=== PATIENT | male | born 1990 | race Caucasian/White ===

== ENCOUNTER 2018-02-11 20:31 | Emergency (ER) | payer OTHER ==
--- NOTE | 2018-02-11 21:19 | RADIOLOGY REPORT (SQ) ---
EXAM DESCRIPTION: CT HEAD WITHOUT COMPLETED DATE/TIME: 02/11/2018 9:09 pm REASON FOR STUDY: ORTIZ hx of mass COMPARISON: None. TECHNIQUE: Axial images acquired through the brain without intravenous contrast. Images reviewed wi th bone, brain and subdural windows. Additional sagittal and coronal reconstructions were generated. Images stored on PACS. All CT scanners at this facility use dose modulation, iterative reconstruction, and/or weight based d osing when appropriate to reduce radiation dose to as low as reasonably achievable (ALARA). [facility]: Dose Right [facility]: CareDose [facility]: Dose Right [facility]: Teradose 4D [facility]: [employer] RADIATION DOSE: CT Rad equipment meets quality standard of care and radiation dose reduction techniq ues were employed. CTDIvol: 53.2 mGy. DLP: 991 mGy-cm. mGy. LIMITATIONS: None. FINDINGS: VENTRICLES: Normal size and contour. CEREBRUM: No masses. No hemorrhage. No midline shift. No evidence for acute infarction. Normal gra y/white matter differentiation. No areas of low density in the white matter. CEREBELLUM: No masses. No hemorrhage. No alteration of density. No evidence for acute infarction. EXTRAAXIAL SPACES: No fluid collections. No masses. ORBITS AND GLOBE: No intra- or extraconal masses. Normal contour of globe without masses. CALVARIUM: No fracture. PARANASAL SINUSES: No fluid or mucosal thickening. SOFT TISSUES: No mass or hematoma. OTHER: No other significant finding. IMPRESSION: NORMAL BRAIN CT WITHOUT CONTRAST. EVIDENCE OF ACUTE STROKE: NO. COMMENT: Quality ID # [id number]: Final reports with documentation of one or more dose reduction techniques (e.g., Automated exposure control, adjustment of the mA and/or kV according to patient size, use of iterative reconstruction technique) TECHNICAL DOCUMENTATION: JOB ID: [id number] [employer]- All Rights Reserved Reading location - IP/workstation name: [email or web address]
[2018-02-11] MEDS ORDERED: NORMAL SALINE 1000 ML 1,000 ML IV ONE ×2 (22:14→23:19)
--- NOTE | 2018-02-11 22:18 | ER Document Report ---
ED Medical Screen (RME) - General Chief Complaint: Headache Stated Complaint: BLURRY VISION Time Seen by Provider: 02/11/18 22:11 Mode of Arrival: Wheelchair Information source: Patient Notes: 27 yo tob smoker, no etoh for 2 years, no drugs, male c/o fright sided headache that causes him inability to sit still 3 hours ago, vision doubling, trouble seeing, could only see straight with 1 eye closed. No recent illness. Hx migraines-feels the same. Increased frequency of headches over the past 6 weeks , every other day. Tx with Ibuprofen, tylenol. No fever or chills. TRAVEL OUTSIDE OF THE [place] IN LAST 30 DAYS: No Physical Exam - Vital signs Vitals: Temp Pulse Resp BP Pulse Ox 97.7 F 92 12 121/79 97 02/11/18 21:01 02/11/18 21:01 02/11/18 21:01 02/11/18 21:01 02/11/18 21:01 Course - Vital Signs Vital signs: Temp Pulse Resp BP Pulse Ox 97.7 F 92 12 121/79 97 02/11/18 21:01 02/11/18 21:01 02/11/18 21:01 02/11/18 21:01 02/11/18 21:01
[2018-02-11] MEDS ORDERED: PROCHLORPERAZINE EDISYLATE INJ 10 MG/2 ML VIAL IV ONE (22:19)
[2018-02-11] MEDS ORDERED: DIPHENHYDRAMINE HCL 50 MG/ML VIAL IV ONE ×2 (22:19→23:08)
[2018-02-11] MEDS ORDERED: KETOROLAC TROMETHAMINE INJ/PF 30 MG/1 ML SDV IV ONE (22:19)
[2018-02-11] MEDS ORDERED: LORAZEPAM INJ 2 MG/1 ML VIAL IV ONE ×3 (22:52→23:56)
[2018-02-11] MEDS ORDERED: LORAZEPAM INJ 2 MG/1 ML VIAL ONE (22:56)
[2018-02-11] MEDS ORDERED: DIPHENHYDRAMINE HCL 50 MG/ML VIAL ONE (23:02)
[2018-02-11] MEDS ORDERED: HALOPERIDOL LACTATE INJ 5 MG/1 ML VIAL IV ONE (23:15)
[2018-02-11 23:30] LABS: ABSOLUTE EOSINOPHILS # (AUTO) 0.1 10^3/uL (0.0-0.6); ABSOLUTE LYMPHOCYTES (AUTO) 3.8 10^3/uL (0.5-4.7); ABSOLUTE MONOCYTES (AUTO) 1.4 10^3/uL (0.1-1.4); ABSOLUTE NEUT (AUTO) 9.9 10^3/uL (1.7-8.2); BASOPHILS % (AUTO) 0.2 % (0-2); HEMATOCRIT 42.6 % (37.9-51.0); HEMOGLOBIN 14.9 g/dL (13.5-17.0); LYMPHOCYTES % (AUTO) 24.8 % (13-45); MEAN CORPUSCULAR HEMOGLOBIN 31.4 pg (27.0-33.4); MEAN CORPUSCULAR HGB CONC 34.9 g/dL (32.0-36.0); MEAN CORPUSCULAR VOLUME 90 fl (80-97); MONOCYTES % (AUTO) 9.3 % (3-13); PLATELET COUNT 329 10^3/uL (150-450); RED BLOOD COUNT 4.74 10^6/uL (4.35-5.55); RED CELL DISTRIBUTION WIDTH 13.1 % (11.5-14.0); SEGMENTED NEUTROPHILS % (AUTO) 64.7 % (42-78); TOTAL CELLS COUNTED % (AUTO) 100 %; WHITE BLOOD COUNT 15.2 10^3/uL (4.0-10.5)
[2018-02-11 23:43] LABS: ALANINE AMINOTRANSFERASE 22 U/L (21-72); ALKALINE PHOSPHATASE 77 U/L (38-126); ASPARTATE AMINO TRANSFERASE 23 U/L (17-59); BILIRUBIN,DIRECT 0.2 mg/dL (0.0-0.4); BILIRUBIN,TOTAL 0.3 mg/dL (0.2-1.3); BLOOD UREA NITROGEN 10 mg/dL (7-20); CALCIUM 9.4 mg/dL (8.4-10.2); CARBON DIOXIDE 17 mmol/L (22-30); CHLORIDE 108 mmol/L (98-107); GLUCOSE 113 mg/dL (75-110); POTASSIUM 3.9 mmol/L (3.6-5.0); TOTAL PROTEIN 7.1 g/dL (6.3-8.2)
[2018-02-11 23:44] LABS: ACETAMINOPHEN < 10 ug/mL (10-30); ALCOHOL < 10 mg/dL (NONE DETECTED); SALICYLATE < 1.0 mg/dL (2.0-20.0)
[2018-02-11 23:48] LABS: ANION GAP 24 (5-19); SODIUM 148.6 mmol/L (137-145)
--- NOTE | 2018-02-11 23:59 | ER Document Report ---
ED General - General Mode of Arrival: Wheelchair TRAVEL OUTSIDE OF THE [place] IN LAST 30 DAYS: No <COREY GARCIA - Last Filed: 02/12/18 07:27> <MYRNA HARDING - Last Filed: 02/12/18 10:49> - General Chief Complaint: Headache Stated Complaint: BLURRY VISION Time Seen by Provider: 02/11/18 22:11 Notes: Patient is a 27-year-old male that comes emergency department for chief complaint of a headache on my evaluation patient cannot sit still, is writhing over the bed, parents at bedside state that patient was complaining of vomiting and headache prior to arrival but after arrival became fidgety and irritable and then after being given medications he began convulsing and jerking. They state he is given gabapentin and another common medication that they do not know [facility], patient is also apparently previously taken the supplement kratom, denies taking any tonight. (COREY GARCIA) - Related Data Allergies/Adverse Reactions: tramadol Adverse Reaction (Verified 02/11/18 22:23) Past Medical History - General Information source: Patient - Social History Smoking Status: Current Every Day Smoker Frequency of alcohol use: None Drug Abuse: None Lives with: Family Family History: Reviewed & Not Pertinent Patient has suicidal ideation: No Patient has homicidal ideation: No - Medical History Medical History: Negative Renal/ Medical History: Denies: Hx Peritoneal Dialysis Surgical Hx: Negative - Immunizations Immunizations up to date: Yes Hx Diphtheria, Pertussis, Tetanus Vaccination: Yes <COREY GARCIA - Last Filed: 02/12/18 07:27> Review of Systems - Review of Systems Constitutional: No symptoms reported EENT: No symptoms reported Cardiovascular: No symptoms reported Respiratory: No symptoms reported Gastrointestinal: No symptoms reported Genitourinary: No symptoms reported Male Genitourinary: No symptoms reported Musculoskeletal: See HPI Skin: No symptoms reported Hematologic/Lymphatic: No symptoms reported Neurological/Psychological: See HPI <COREY GARCIA - Last Filed: 02/12/18 07:27> Physical Exam - Vital signs Interpretation: Normal - General General appearance: Anxious In distress: Moderate - Patient appears uncomfortable, he is jerking his arms and legs all over the bed - HEENT Head: Normocephalic, Atraumatic Eyes: Normal Conjunctiva: Normal Extraocular movements intact: Yes Eyelashes: Normal Pupils: PERRL Nasal: Normal Mouth/Lips: Normal Mucous membranes: Normal Pharynx: Normal Neck: Normal - Respiratory Respiratory status: No respiratory distress Chest status: Nontender Breath sounds: Normal. No: Decreased air movement, Wheezing Chest palpation: Normal - Cardiovascular Rhythm: Regular. No: Tachycardia Heart sounds: Normal auscultation, S1 appreciated, S2 appreciated Murmur: No - Abdominal Inspection: Normal Distension: No distension Bowel sounds: Normal Tenderness: Nontender. No: Tender, Guarding - Back Back: Normal, Nontender. No: Tender - Extremities General upper extremity: Normal inspection, Nontender, Normal ROM, Normal strength General lower extremity: Normal inspection, Nontender, Normal ROM, Normal strength - Neurological Neuro grossly intact: Yes Cognition: Normal Orientation: AAOx4 David Coma Scale Eye Opening: Spontaneous David Coma Scale Verbal: Oriented [place] Coma Scale Motor: Obeys Commands David Coma Scale Total: 15 Cranial nerves: Normal Sensory: Normal - Psychological Associated symptoms: Agitated - Skin Skin Temperature: Warm Skin Moisture: Dry Skin Color: Normal <COREY GARCIA - Last Filed: 02/12/18 07:27> - Vital signs Vitals: Temp Pulse Resp BP Pulse Ox 97.7 F 92 12 121/79 97 02/11/18 21:01 02/11/18 21:01 02/11/18 21:01 02/11/18 21:01 02/11/18 21:01 Course - Laboratory Result Diagrams: 02/11/18 23:10 02/11/18 23:10 <COREY GARCIA - Last Filed: 02/12/18 07:27> - Laboratory Result Diagrams: 02/11/18 23:10 02/11/18 23:10 <MYRNA HARDING - Last Filed: 02/12/18 10:49> - Re-evaluation Re-evalutation: Patient is tachycardic, spasming/convulsing on the bed, he complains that he feels like he can't stop moving. He is oriented, cooperative. Patient has already been given 5 mg of Haldol, 50 mg of Benadryl, Compazine, Toradol, and Ativan. Per parents patient significantly worsened after medications, could be dystonic reaction initially. Could be dystonic reaction to Compazine, he did get Haldol afterwards. CAT scan of the head shows no concerning abnormalities, had been performed before I evaluated the patient. Patient does deny having a headache now. Patient appeared to be having a dystonic reaction, he will be given more Ativan , IV fluids, and reevaluated. After additional doses patient's dystonia/convulsions are stopped, patient sleeping and easily aroused, he states he feels great now except he feels tired. 02/12/18 06:00 Patient sleeping, easily aroused, tachycardia has resolved, he is still drowsy but he denies any complaints, he is oriented and cooperative. He states he slept very poorly over the past few nights, he was supposed to see a psychiatrist later today, he denies SI or HI, he states he just was to sleep and then go home. 02/12/18 07:05 Introduced to Ira Roblero PA-C at bedside, patient with no current complaints. Plan is for patient to go home after he is less drowsy and is steady on his feet. (COREY GARCIA) - Vital Signs Vital signs: Temp Pulse Resp BP Pulse Ox 97.7 F 92 19 101/73 97 02/11/18 21:01 02/11/18 21:01 02/12/18 09:21 02/12/18 09:21 02/12/18 09:21 - Laboratory Laboratory results interpreted by me: 02/11/18 02/11/18 23:10 23:10 WBC 15.2 H Absolute Neutrophils 9.9 H Sodium 148.6 H Chloride 108 H Carbon Dioxide 17 L Anion Gap 24 H Glucose 113 H Salicylates < 1.0 L Acetaminophen < 10 L Discharge <COREY GARCIA - Last Filed: 02/12/18 07:27> <MYRNA HARDING - Last Filed: 02/12/18 10:49> - Discharge Clinical Impression: Dystonic drug reaction Headache Qualifiers: Headache type: unspecified Headache chronicity pattern: acute headache Intractability: not intractable Qualified Code(s): R51 - Headache Condition: Stable Disposition: HOME, SELF-CARE Additional Instructions: Your workup showed dehydration and also I suspect you had a dystonic reaction to medications that he received tonight (most likely Compazine, possibly Haldol) . The CAT scan of your head was normal. Follow-up with your psychiatrist for additional evaluation and management. Return for any concerning symptoms including severe headache or if something is not right. Forms: Return to Work
--- NOTE | 2018-02-12 10:29 | ER Document Report ---
Doctor's Note Notes: 02/12/18 10:22 Medical rounds: Chart reviewed and patient interviewed briefly. Tachycardia and tachypnea have resolved. Vital signs at this time are normal. Laboratory values are satisfactory. On examination, patient is alert, oriented, and cooperative. He denies a specific somatic complaints. He is medically stable, pending psychosocial evaluation and disposition.
--- NOTE | 2018-02-12 10:56 | PSYCHOLOGICAL NOTE ---
Psych Note - Psych Note Psych Note: Reason for consult: Bizarre behavior/fidgety Eval: 0900 Final Dispo: Order canceled by [employer] TECHNICIAN no dispo needed Patient is a 27-year-old male. Patient was unable to wake for the assessment, would not participate in assessment. Impression/Plan: Nurse practitioner Daisy Titus ordered a psych consult stating patient was allegedly on kratom, and had bizarre "fidgety" behaviors. Clinician discussed patient with nurse practitioner Ira Roblero who stated that he is no longer a psych consult due to him coming in for a headache and having a medication reaction. Nurse practitioner Annika stated she does not want him assessed by mental health and would like the order canceled as he is being discharged shortly.
[2018-02-12 11:28] VITALS: BP 111/75
== END 2018-02-12 11:25 | disposition home or self-care (01) ==
LOC: ER 20:31
DX: G24.09 Other drug induced dystonia (principal); R51 Headache; H53.8 Other visual disturbances; R00.0 Tachycardia, unspecified; F43.10 Post-traumatic stress disorder, unspecified; F41.9 Anxiety disorder, unspecified; F17.200 Nicotine dependence, unspecified, uncomplicated
CPT/HCPCS: 96376; 99285; 96361; 96374; 96375; 36415; 80307 ×3; 82550; 85025; 80053; 70450; J1200; J1630; J1885; J2060 ×2; J0780; J7030 ×2